=== PATIENT | female | born 1975 | race Caucasian/White ===

== ENCOUNTER 2024-12-09 03:15 | Emergency (ER) | payer BC ==
[2024-12-09 03:45] LABS: #Basophils 0.07 10x3/uL (0.0-0.2); %Eosinophils 1.2 % (0.0-10.0); %Lymphocytes 33.4 % (21.0-51.0); %Monocytes 9.7 % (0.0-10.0); %Neutrophils 54.6 % (42.0-75.0); Hematocrit 40.2 % (36.0-47.0); Hemoglobin 13.4 g/dL (12.0-16.0); Mean Corpuscular HGB CONC 33.3 g/dL (32.0-36.0); Mean Corpuscular Hemoglobin 28.3 pg (27.0-31.0); Platelet Count 256 10x3/uL (130-400); RBC Distribution Width 13.1 % (11.5-14.5); Red Blood Cell (RBC) Count 4.73 mill/uL (4.20-5.40)
[2024-12-09 03:59] LABS: ALT (SGPT) 12 U/L (Less than 34); AST (SGOT) 33 U/L (11-34); Alkaline Phosphatase 106 U/L (40-110); BUN (Urea Nitrogen) 18 mg/dL (7.0-18.7); Bilirubin, Total 0.3 mg/dL (0.3-1.2); Calc. Creatinine Clearance 0 mL/min (70-130); Calcium 9.3 mg/dL (7.8-10.44); Carbon Dioxide 26 mmol/L (22-29); Estimated GFR 66; Globulin 3.3 g/dL (2.4-3.5); Glucose 96 mg/dL (70-105); Protein, Total 7.3 g/dL (6.0-8.3)
[2024-12-09 04:05] LABS: Troponin I Less than 0.010 ng/mL (< 0.028)
[2024-12-09 04:44] LABS: Anion Gap 14 mmol/L (10-20); Chloride 107 mmol/L (98-107); Potassium 3.9 mmol/L (3.5-5.1); Sodium 142 mmol/L (136-145)
== END 2024-12-09 04:58 | disposition home or self-care (01) ==
LOC: ERS 03:15
DX: R00.2 Palpitations (principal); R07.89 Other chest pain
CPT/HCPCS: 36415; 71045; 80053; 84484; 85025; 93005